=== PATIENT | female | born 1975 | race American Indian/Alaskan Native ===

== ENCOUNTER 2022-01-03 06:54 | Outpatient (CLI) | payer BC ==
--- NOTE | 2022-01-03 07:41 | Ultrasound Report ---
US breast RT limited INDICATION / CLINICAL INFORMATION: M79.89 SOFT TISSUE MASS. COMPARISON: None available. FINDINGS/IMPRESSION: Normal subcutaneous echotexture without evidence of mass, fluid collection or adenopathy is noted wit hin the right axillary tail (area of pain/tenderness) Signer Name: Malik Burgos DO Signed: 01/03/2022 7:37 AM Workstation Name: [id number]
== END 2022-01-03 06:55 | disposition home or self-care (01) ==
LOC: US 06:54
PROVIDERS: ATTEND Family Medicine Adult Medicine
DX: M79.89 Other specified soft tissue disorders (principal)